=== PATIENT | female | born 1995 | race Caucasian/White ===

== ENCOUNTER 2020-09-28 06:22 | Inpatient (IN) ==
[2020-09-28] MEDS ORDERED: LR 1000 ML IV 1,000 ML IV ONE ×2 (06:35→06:42)
[2020-09-28] MEDS ORDERED: ANCEF 1 GRAM IV PREMIX* 2 G/100 ML BAG IV ONE (06:35)
[2020-09-28] MEDS ORDERED: DILAUDID INJ ONE (06:41)
[2020-09-28] MEDS ORDERED: D5 1/2 NS 1L W PITOCIN 20 UNITS/L 20 UNITS/1,000 ML BAG IV ONE (06:42)
[2020-09-28] MEDS ORDERED: XYLOCAINE 1 % (PLAIN) ONE (06:43)
[2020-09-28] MEDS ORDERED: EPHEDRINE SULFATE INJ ONE (07:26)
[2020-09-28] MEDS ORDERED: PITOCIN ONE (07:26)
[2020-09-28] MEDS ORDERED: MARCAINE SPINAL ONE (07:26)
[2020-09-28] MEDS ORDERED: REGLAN INJ 10 MG VIAL ONE (07:26)
[2020-09-28] MEDS ORDERED: ZOFRAN INJ 4 MG VIAL ONE (07:26)
[2020-09-28] MEDS ORDERED: NS 1000 ML 1,000 ML ONE (07:44)
[2020-09-28] MEDS ORDERED: ZOFRAN INJ 4 MG VIAL IVP PRN ×2 (08:37→09:53)
[2020-09-28] MEDS ORDERED: BENADRYL INJ 50 MG VIAL IVP PRN (08:37)
[2020-09-28] MEDS ORDERED: REGLAN INJ 10 MG VIAL IVP PRN (08:37)
[2020-09-28] MEDS ORDERED: BARHEMSYS INJ IVP PRN (08:37)
[2020-09-28] MEDS ORDERED: PHENERGAN INJ 25 MG IM PRN ×2 (08:37→09:57)
[2020-09-28] MEDS ORDERED: NARCAN INJ IVP PRN ×3 (08:53→09:55)
[2020-09-28] MEDS ORDERED: PERCOCET TAB 5/325 MG PO PRN (09:50)
[2020-09-28] MEDS ORDERED: MILK OF MAGNESIA PO PRN (09:50)
[2020-09-28] MEDS ORDERED: AMBIEN PO PRN (09:50)
[2020-09-28] MEDS: PRENATAL PLUS PO SCH (10:18)
[2020-09-28] MEDS: TORADOL 30 MG VIAL IM SCH ×3 (10:24→22:23)
[2020-09-28] MEDS ORDERED: COLACE CAP 100 MG PO SCH (21:00)
[2020-09-29] MEDS: TORADOL 30 MG VIAL IM SCH (03:52)
[2020-09-29 06:06] LABS: HEMATOCRIT 25.2 % (36.0-47.0)
[2020-09-29 06:10] LABS: HEMOGLOBIN 8.5 g/dL (12.0-16.0)
--- NOTE | 2020-09-29 07:06 | NOTE.PROBC ---
Progress Note OB-C/S Subjective Data Subjective: No complaints, decreased lochia. Tolerating regular diet. No N/V. Ambulating well. Michele draining well. Pain under good control with { }. Objective Data Result Diagrams: 09/29/20 05:20 Objective Data: CV= RRR no MRG Lungs=CTA Bilaterally Abd=(+) BS, soft, ND, appropriately tender near incision. Bandage removed. Incision clean/dry/intact, no erythema, no bleeding, no discharge. Dermabond/Stitches intact. Fundus firm/NT/ at { } cm below umbilicus. Ext= No edema, NT, No Cords. Graduated Compression Stockings/Sequential Compression Devices Bilaterally. Plan (1) delivery delivered: Plan: doing well requesting early d/c
[2020-09-29] MEDS ORDERED: MOTRIN TAB 800 MG PO PRN (08:00)
[2020-09-29] MEDS ORDERED: TORADOL 30 MG VIAL IM PRN (08:30)
[2020-09-29] MEDS: PRENATAL PLUS PO SCH (09:43)
--- OUTSIDE RECORDS SUMMARY | 2020-09-29 10:40 | XMS | Continuity of Care Document ---
:1995 Author Name [employer], [employer] Address Unavailable Unavailable , Care Team Providers Name Role Phone No, PCP Primary Care Provider Unavailable Jesus Marsh Sr Unavailable Avalos Unavailable Unavailable Unavailable Unavailable Problems Name Dates Details Abortions/Miscarriages Comments: 4. Status: Active Anemia in , third trimester (O99.013, 648.23) Status: Active Breech presentation, single or unspecified fetus (O32.1XX0, 652.20) Status: Active Chronic hypertension affecting (O10.919, 642.00) Status: Active Delivery Mode Comments: 1-Vaginal, 8-A-Jhdnbbde Status: Active Elevated liver enzymes (R74.8, 790.5) Co mments: plan to repeat in about1-2 months Status: Active Encounter for supervision of normal preg michela in multigravida in third trimester (Z34.83, V22.1) Comments: CHTN and will now start BPP/NST weekly at 32 weeks with a planned 37 week repeat with tubal. Tubal consents are signed. Status: Active High-risk in third trimester (O09.93, V23.9) Comments: The is no longer breech but we will still move to a repeat with tubal. Yesterday's BPP was 10/10 Status: Active Living Children (Number Of) Comments: 2. Status: Active Pregnancies () Comments: 8. Status: Active Status Comments: . Positive home test. Status: Active Comments: 1. Deliver ed stillborn at 5 months Status: Active Previous section (Z98.891, V45.89) Status: Active Term Comments: 2. Status: Active Tobacco abuse (Z72.0, 305.1) Status: Act josiah Unspecified Diagnosis Status: Active Unspecified Diagnosis Status: Active Medications Name Dates Details Iron 325 (65 Fe) MG Oral Tablet 1 (one) Tablet three times daily for 30 days Quantity: 90 {Tablet} Refills: 3 Ordered:08-Sep-2020 Start : 08-Sep-2020 Active Oral Tablet Active Azithromycin 250 MG Oral Tablet 1 (one) Tablet daily for 5 days Quantity: 7 {Tablet} Refills: 0 Ordered:16-May-2020 Юлия Lopez Start : 16-May-2020 End : 21-May-2020 Inactive No Known Historical Medications Allergies and Adverse Reactions Name Dates Details Penicillins (Allergy) Reaction: Hives, I tching Status: Active Past Medical History Name Dates Details Encounter for supervision of normal preg michela in multigravida in first trimester (Z34.81, V22.1) Status: Inactive as of Encounter for supervision of normal preg michela in multigravida in second trimester (Z34.82, V22.1) Status: Inactive as of No pertinent past medical history Status : Inactive as of 19-Aug-2020 No-show for appointment (Z53.29, V64.2) Status: Inactive as of 08-Sep-2020 Urinary tract infection affecting (O23.40, 646.60) Status: Inactive as of 08-Sep-2020 Procedures Procedure Dates Details LIGATION OR TRANSECTION OF Date: 26-Sep-2020 FALLOPIAN TUBE(S) WHEN DONE AT THE TIME OF DELIVERY OR INTRA-ABDOMINAL SURGERY (NOT A SEPARATE PROCEDURE) (LIST SEPARATELY IN ADDITION TO CODE FOR PRIMARY PROCEDURE) ([id number]) Verified Opioid Agreement Date: 23-Sep-2020 Completed Follow My Health Date: 23-Sep-2020 Completed How to Access Health Information Date: 23-Sep-2020 Complet ed 23-Sep-2020 Online using Patient Portal and 3rd [employer] Apps Section for a Breech Date: 23-Sep-2020 Baby: breech REPEAT DELIVERY WITH Date: 20-Sep-2020 CARE ([id number]) Section (Counseling and Date: 16-Sep-2020 Pre-op) Verified Opioid Agreement Date: 16-Sep-2020 Completed Follow My Health Date: 16-Sep-2020 Completed 16-Sep-2020 How to Access Health Information Date: 16-Sep-2020 Complet ed 16-Sep-2020 Online using Patient Portal and [employer] Verified Opioid Agreement Date: 08-Sep-2020 Completed Follow My Health Date: 08-Sep-2020 Completed 08-Sep-2020 How to Access Health Information Date: 08-Sep-2020 Complet ed 08-Sep-2020 Online using Patient Portal and [employer] Anemia During : anemia Date: 08-Sep-2020 US FOR BIOPHYSICAL PROFILE Date: 19-Aug-2020 WO NON-STRESS TESTING to be done weekly ([id number]) NONSTRESS TEST to be done Date: 19-Aug-2020 weekly ([id number]) Verified Opioid Agreement Date: 19-Aug-2020 Completed Follow My Health Date: 19-Aug-2020 Completed How to Access Health Information Date: 19-Aug-2020 Complet ed 19-Aug-2020 Online using Patient [employer] and [employer] Section for a Previous Date: 19-Aug-2020 Uterine Operation: c section Verified Opioid Agreement Date: 05-Aug-2020 Completed Follow My Health Date: 05-Aug-2020 Completed How to Access Health Information Date: 05-Aug-2020 Complet ed 05-Aug-2020 Online using Patient Portal and [employer] and Weight Control *: Date: 05-Aug-2020 weight control Verified Opioid Agreement Date: 08-Jul-2020 Completed Follow My Health Date: 08-Jul-2020 Completed How to Access Health Information Date: 08-Jul-2020 Complet ed 08-Jul-2020 Online using Patient Portal and [employer] Apps Verified Opioid Agreement Date: 10-Jun-2020 Completed Follow My Health Date: 10-Jun-2020 Completed 10-Jun-2020 How to Access Health Information Date: 10-Jun-2020 Complet ed 10-Jun-2020 Online using Patient Portal and 3rd [employer] Apps Follow My Health Date: 10-Jun-2020 Completed 10-Jun-2020 SMOKING CESSATION COUNSELING FOR 3 Date: 10-Jun-2020 TO 10 MINUTES ([id number]) Smoking Counseling Education Date: 10-Jun-2020 Verified Opioid Agreement Date: 13-May-2020 Completed Follow My Health Date: 13-May-2020 Completed 13-May-2020 SMOKING CESSATION COUNSELING FOR 3 Date: 13-May-2020 TO 10 MINUTES ([id number]) SMOKING CESSATION COUNSELING FOR 3 Date: 13-May-2020 TO 10 MINUTES ([id number]) Smoking Counseling Education Date: 13-May-2020 OB US >/= 14 WKS, SNGL FETUS Date: 13-May-2020 ([id number]) OB US >/= 14 WKS, SNGL FETUS Date: 18-Mar-2020 ([id number]) TRANSVAGINAL US, OBSTETRIC ([id number]) Date: 23-Feb-2020 OBSTETRICAL CARE ([id number]) Date: 23-Feb-2020 Completed COLLECTION OF CAPILLARY BLOOD: Date: 23-Feb-2020 Completed 23-Feb-2020 CAPILLARY BLOOD DRAW ([id number]) Comments: C ollection of capillary blood from index finger on right hand for HGB check by Leny Watt LPN. Patient tolerated well. COLLECTION OF VENOUS BLOOD BY Date: 23-Feb-2020 Completed 23-Feb-2020 VENIPUNCTURE: ROUTINE VENIPUNCTURE Comme nts: Venipuncture to Right AC on 02/23/2020 at 14:50 by Leny Watt LPN. Patient tolerated well. ([id number]) Section - 2 Completed Gallbladder Surgery - Laparoscopic Compl eted Tubal Ligation Completed Comments: Left. 2018 , due to Tubal Family History Name Dates Details Asthma Comments: Mother. So n. Status: Active Social History Name Dates Details Alcohol Use: Occasional alcohol use. Drinks wine. Status: Active Caffeine Use Comments: Consumes 4 servings per day of tea. Status: Active Current tobacco use: Has been smoking fo r 8 years. Smokes < 1 pack of cigarettes per day. Would like to quit. Status: Active Drug Use: Uses marijuana. Recently quit drug use. Status: Active Exercise History: Light. walking. housework. Status: Active Seat Belt Use: Always uses seat belts. S tatus: Active Tobacco/Smoke Exposure: None. Status: Ac tive Vital Signs Date Test Result Details :36 Body temperature 98.7 f Comments: Metho d: Oral Heart Rate 94 /min Comments: Pattern: R egular Respiratory rate 20 /min Comments: Pattern: U nlabored O2 SAT 99 % Comments: Room air Systolic blood pressure 131 mm[Hg] Comments: Patien t Position: Sitting; Cuff Location: Left Arm; Cuff Size: Standard Diastolic blood pressure 87 mm[Hg] Comments: Patie nt Position: Sitting; Cuff Location: Left Arm; Cuff Size: Standard Weight 187 lb Body height 60 in Body mass index (BMI) [Ratio] 36.52 kg/m2 Body surface area Derived from formula 1.81 m2 :54 Body temperature 98.1 f Comments: Metho d: Oral Heart Rate 101 /min Comments: Pattern: R egular Respiratory rate 20 /min Comments: Pattern: U nlabored O2 SAT 100 % Comments: Room air Systolic blood pressure 139 mm[Hg] Comments: Patien t Position: Sitting; Cuff Location: Left Arm; Cuff Size: Standard Diastolic blood pressure 71 mm[Hg] Comments: Patie nt Position: Sitting; Cuff Location: Left Arm; Cuff Size: Standard Weight 183.25 lb Body height 60 in Body mass index (BMI) [Ratio] 35.79 kg/m2 Body surface area Derived from formula 1.80 m2 :31 Body temperature 99.1 f Comments: Metho d: Oral Heart Rate 89 /min Comments: Pattern: R egular Respiratory rate 20 /min Comments: Pattern: U nlabored O2 SAT 98 % Comments: Room air Systolic blood pressure 140 mm[Hg] Comments: Patien t Position: Sitting; Cuff Location: Left Arm; Cuff Size: Standard Diastolic blood pressure 89 mm[Hg] Comments: Patie nt Position: Sitting; Cuff Location: Left Arm; Cuff Size: Standard Weight 181.125 lb Body height 60 in Body mass index (BMI) [Ratio] 35.37 kg/m2 Body surface area Derived from formula 1.79 m2 :51 Body temperature 97.4 f Comments: Meth od: Oral Heart Rate 98 /min Comments: Pattern: R egular Respiratory rate 20 /min Comments: Pattern: U nlabored O2 SAT 99 % Comments: Room air Systolic blood pressure 150 mm[Hg] Comments: Patien t Position: Sitting; Cuff Location: Left Arm; Cuff Size: Standard Diastolic blood pressure 68 mm[Hg] Comments: Patie nt Position: Sitting; Cuff Location: Left Arm; Cuff Size: Standard Weight 178.125 lb Body height 60 in Body mass index (BMI) [Ratio] 34.79 kg/m2 Body surface area Derived from formula 1.78 m2 :20 Body temperature 98.1 f Comments: Meth od: Oral Heart Rate 95 /min Comments: Pattern: R egular Respiratory rate 20 /min Comments: Pattern: U nlabored O2 SAT 99 % Comments: Room air Systolic blood pressure 139 mm[Hg] Comments: Patien t Position: Sitting; Cuff Location: Left Arm; Cuff Size: Standard Diastolic blood pressure 65 mm[Hg] Comments: Patie nt Position: Sitting; Cuff Location: Left Arm; Cuff Size: Standard Weight 175 lb Body height 60 in Body mass index (BMI) [Ratio] 34.18 kg/m2 Body surface area Derived from formula 1.76 m2 :40 Body temperature 97.2 f Comments: Metho d: Oral Heart Rate 94 /min Comments: Pattern: R egular Respiratory rate 18 /min Comments: Pattern: U nlabored O2 SAT 100 % Comments: Room air Systolic blood pressure 156 mm[Hg] Comments: Patien t Position: Sitting; Cuff Location: Left Arm; Cuff Size: Standard Diastolic blood pressure 73 mm[Hg] Comments: Patie nt Position: Sitting; Cuff Location: Left Arm; Cuff Size: Standard Weight 172.5 lb Body height 60 in Body mass index (BMI) [Ratio] 33.69 kg/m2 Body surface area Derived from formula 1.75 m2 :39 Body temperature 98.8 f Comments: Metho d: Oral Heart Rate 91 /min Comments: Pattern: R egular Respiratory rate 18 /min Comments: Pattern: U nlabored O2 SAT 100 % Comments: Room air Systolic blood pressure 136 mm[Hg] Comments: Patien t Position: Sitting; Cuff Location: Left Arm; Cuff Size: Standard Diastolic blood pressure 67 mm[Hg] Comments: Patie nt Position: Sitting; Cuff Location: Left Arm; Cuff Size: Standard Weight 170.5 lb Body height 60 in Body mass index (BMI) [Ratio] 33.30 kg/m2 Body surface area Derived from formula 1.74 m2 :39 Body temperature 98.7 f Comments: Metho d: Oral Heart Rate 90 /min Comments: Pattern: R egular Respiratory rate 20 /min Comments: Pattern: U nlabored O2 SAT 99 % Comments: Room air Systolic blood pressure 155 mm[Hg] Comments: Patien t Position: Sitting; Cuff Location: Left Arm; Cuff Size: Standard Diastolic blood pressure 81 mm[Hg] Comments: Patie nt Position: Sitting; Cuff Location: Left Arm; Cuff Size: Standard Weight 167 lb Body height 60 in Body mass index (BMI) [Ratio] 32.61 kg/m2 Body surface area Derived from formula 1.73 m2 :03 Body temperature 99.2 f Comments: Metho d: Oral Heart Rate 89 /min Comments: Pattern: R egular Respiratory rate 20 /min Comments: Pattern: U nlabored O2 SAT 100 % Comments: Room air Systolic blood pressure 121 mm[Hg] Comments: Patien t Position: Sitting; Cuff Location: Left Arm; Cuff Size: Standard Diastolic blood pressure 65 mm[Hg] Comments: Patie nt Position: Sitting; Cuff Location: Left Arm; Cuff Size: Standard Weight 166.125 lb Body height 60 in Body mass index (BMI) [Ratio] 32.44 kg/m2 Body surface area Derived from formula 1.73 m2 :32 Body temperature 99 f Comments: Metho d: Oral Heart Rate 98 /min Comments: Pattern: R egular Respiratory rate 18 /min Comments: Pattern: U nlabored O2 SAT 98 % Comments: Room air Systolic blood pressure 146 mm[Hg] Comments: Patien t Position: Sitting; Cuff Location: Left Arm; Cuff Size: Standard Diastolic blood pressure 69 mm[Hg] Comments: Patie nt Position: Sitting; Cuff Location: Left Arm; Cuff Size: Standard Weight 168 lb Body height 60 in Body mass index (BMI) [Ratio] 32.81 kg/m2 Body surface area Derived from formula 1.73 m2 :32 Body temperature 98.3 f Comments: Meth od: Temporal Heart Rate 84 /min Comments: Pattern: R egular Respiratory rate 20 /min Comments: Pattern: U nlabored O2 SAT 99 % Comments: Room air Systolic blood pressure 143 mm[Hg] Comments: Patien t Position: Sitting; Cuff Location: Left Arm; Cuff Size: Standard Diastolic blood pressure 84 mm[Hg] Comments: Patie nt Position: Sitting; Cuff Location: Left Arm; Cuff Size: Standard Weight 166 lb Body height 60 in Body mass index (BMI) [Ratio] 32.42 kg/m2 Body surface area Derived from formula 1.72 m2 Results Date Value Details 23-Sep-2020 OBSTETRICAL CARE ([id number]) Result: [MATERNAL / DA TA] NANCI by LMP: 09/19/2020; NANCI by physician: 10/19/2020; Movement: Present; Edema, face: 0 [MATERNAL / DATA \\ Gestational Age by Initial Exam] Weeks: 36 Weeks; Days: 2 Day s [MATERNAL / DATA \\ F undal Height] Fundal Height (Description): S>D [MATERNAL / DATA \\ Heart] Heart Rate: 150 bpm; Heart Tones: Present by doptone; Heart Tone Ben albert: RLQ [ LIE & PRES ENTATION] Presentation: Vertex [NEXT APPOINTMENT] Next Appointment: 3 weeks; Initials: ml; Comments: repeat on 16-Sep-2020 OBSTETRICAL CARE ([id number]) Result: [MATERNAL / DA TA] NANCI by LMP: 09/19/2020; NANCI by physician: 10/19/2020; Movement: Present; Edema, face: 0 [MATERNAL / DATA \\ Gestational Age by Initial Exam] Weeks: 35 Weeks; Days: 2 Day s [MATERNAL / DATA \\ F undal Height] Fundal Height: 38 cm; Fundal Height (Description): S>D [MATERNAL / DATA \\ Heart] Heart Rate: 145 bpm; Heart Tones: Present by doptone ; Heart Tone Quadrant: RLQ [ LIE & PRESENTATION] Lie: Longitudinal; Head: Not Examined; Presentation: Vertex; Descent: N/A [NEXT APPOINTMENT] Next Appointment: 1 week; Initials: ml; Comments: BPP 08-Sep-2020 OBSTETRICAL CARE ([id number]) Result: [MATERNAL / DA TA] NANCI by LMP: 09/19/2020; NANCI by physician: 10/19/2020; Movement: Present [MATERNAL / DATA \\ Gestational Age by Initial Exam] Weeks: 34 Weeks; Days: 1 Day [MATERNAL / FET AL DATA \\ Fundal Height] Fun carmine Height (Description): S>D [MATERNAL / DATA \\ Heart] Heart Rate: 145 bpm; Heart Tones: Present by doptone, Present by ultrasound [ LIE &amp ; PRESENTATION] Head: Not Examined; Presentation: Breech; Descent: N/A [NEXT APPOINTMENT] Next Appointment: 1 week; Initials: ml; Comments: is scheduled for 19-Aug-2020 OBSTETRICAL CARE ([id number]) Result: [MATERNAL / DA TA] NANCI by LMP: 09/19/2020; NANCI by physician: 10/19/2020; Edema, face: 0; Edema, legs & feet: 0 [MATERNAL / DATA \\ Gestational Age by Initial Exam] Weeks: 31 Weeks; Days: 2 D ays [MATERNAL / DATA \\ Fundal Height] Fundal Height: 35 cm [MATERNAL / DATA \\ Heart] Heart Rate: 145 bpm; Heart Tones: Present by doptone; Heart Tone Quadrant: RLQ [N EXT APPOINTMENT] Next Appoin tment: 2 weeks; Initials: ml; Comments: start weekly BPP/NST. /tubal is scheduled for 37 weeks 05-Aug-2020 OBSTETRICAL CARE ([id number]) Result: [MATERNAL / DA TA] NANCI by LMP: 09/19/2020; NANCI by physician: 10/19/2020; Edema, face: 0 [MATERNAL / DATA \\ Gestational Age by Initial Exam] Weeks: 29 Weeks; Days: 2 Days [MATERNAL / DATA \\ Fundal Height] Fundal Heig ht (Description): S=D [MATERNAL / DATA \\ Heart] Heart Rate: 145 bpm; Heart Tones: Present by doptone; Heart Tone Quadrant: RLQ [NEXT APPOINTMENT] Next Appointment: 2 weeks; Initials: ml 08-Jul-2020 OBSTETRICAL CARE ([id number]) Result: [MATERNAL / DA TA] NANCI by LMP: 09/19/2020; NANCI by physician: 10/19/2020; Movement: Present [MATERNAL / DATA \\ Gestational Age by Initial Exam] Weeks: 25 Weeks; Days: 2 Days [MATERNAL / FE MAHI DATA \\ Fundal Height] Fu ndal Height: 27 cm [MATERNAL / DATA \\ Heart] Heart Rate: 145 bpm; Heart Tones: Present by doptone; Heart Tone Quadrant: RLQ [ LIE & PRE SENTATION] Lie: Longit udinal; Head: Not Examined; Presentation: Vertex; Descent: N/A [NEXT APPOINTMENT] Next Appointment: 4 weeks; Initials: ml; Comments: 1 hour GTT/ CMP/24 hour urine 10-Jun-2020 OBSTETRICAL CARE ([id number]) Result: [MATERNAL / DA TA] NANCI by LMP: 09/19/2020; NANCI by physician: 10/19/2020; Movement: Present; Edema, face: 0; Edema, legs & feet: 0 [MATERNAL / DATA \\ Gestational Age by Initial Exam] W eeks: 21 Weeks; Days: 2 Days [MATERNAL / DATA \\ Fundal Height] Fundal Height: 23 cm [MATERNAL / DATA \\ Heart] Heart Rate: 150 bpm; Heart Tones: Present by doptone; He art Tone Quadrant: RLQ [FETA L LIE & PRESENTATION] Lie: N/A; Head: Not Examined; Presentation: N/A; Descent: N/A [NEXT APPOINTMENT] Next Appointment: 4 weeks; Initials: ml; Comments: desires tubal ligation at repeat 13-May-2020 OBSTETRICAL CARE ([id number]) Result: [MATERNAL / DA TA] NANCI by LMP: 09/19/2020; NANCI by physician: 10/19/2020; Edema, face: 0; Edema, legs & feet: 0 [MATERNAL / DATA \\ Gestational Age by Initial Exam] Weeks: 17 Weeks; Days: 2 D ays [MATERNAL / DATA \\ Fundal Height] Fundal Height (Description): S=D [MATERNAL / DATA \\ Heart] Heart Rate: 145 bpm; Heart Tone Quadrant: RLQ [NEXT APPOINTMENT] Next Appoi ntment: 4 weeks; Initials: ml; Comments: repeat liver enzyme next visit 20-Apr-2020 OBSTETRICAL CARE ([id number]) Result: [MATERNAL / DA TA] NANCI by LMP: 09/19/2020; NANCI by physician: 10/19/2020 [MATERNAL / DATA \\ Gestational Age by Initial Exam] Weeks: 14 Weeks 15-Apr-2020 OBSTETRICAL CARE ([id number]) Result: [MATERNAL / DA TA] NANCI by LMP: 09/19/2020; NANCI by physician: 10/19/2020; Movement: Present; Edema, face: 0; Edema, legs & feet: 0 [MATERNAL / DATA \\ Gestational Age by Initial Exam] W eeks: 13 Weeks; Days: 2 Days [MATERNAL / DATA \\ Fundal Height] Fundal Height (Description): S=D [MATERNAL / DATA \\ Heart] Heart Rate: 145 bpm; Heart Tone Quadrant: N/A [FET AL LIE & PRESENTATION] Head: Not Examined; Descent: N/A [NEXT APPOINTMENT] Next Appointment: 4 weeks; Initials: ml; Comments: She still has not had labs drawn-send now 25-Mar-2020 OBSTETRICAL CARE ([id number]) Result: [MATERNAL / DA TA] NANCI by LMP: 09/19/2020; NANCI by physician: 10/19/2020; Basis: ultrasound [MATERNAL / DATA \\ Gestational Age by Initial Exam] Weeks: 10 Weeks; Days: 2 Days 18-Mar-2020 OBSTETRICAL CARE ([id number]) Result: [MATERNAL / DA TA] NANCI by LMP: 09/19/2020 [MATERNAL / DATA \\ Gestational Age by Initial Exam] Weeks: 13 Weeks; Days: 4 Days Date Description Value Details :30 URINALYSIS, AUTOMATED W/O MICRO Comments : Urine collected clean catch.; Dr. Marsh notified. ([id number]) UA - COLOR yellow (Normal) UA - APPEARANCE clear (Normal) UA - GLUCOSE Negative g/dL (Normal) UA - BILIRUBIN Negative (Normal) UA - KETONES Negative mg/dL (Normal) UA - SPECIFIC GRAVITY 1.020 (Normal) UA - BLOOD Negative (Normal) UA - PH 7.0 (Normal) UA - PROTEIN Negative mg/dL (Normal) UA - UROBILINOGEN 0.2 mg/dL (Normal) UA - NITRITE Negative (Normal) UA - LEUKOCYTE ESTERASE Negative (Normal) :30 URINE PREG TEST-VIS COL ([id number]) Comments : Urine collected clean catch. Urine Test POSITIVE with control line present. Positive = Positive, Negative = Negative. LOT #[id number], EXP: 07/01/2020; Dr. Marsh notified. URINE PREG TEST-VIS COL POSITIVE (Normal) Comme nts: LOT #[id number], EXP: 1Positive = PositiveNegative = Negative :41 HGB (HEMOGLOBIN) ([id number]) Comments: Colle ction of capillary blood from index finger on right hand for HGB check by Leny Watt LPN. Patient tolerated well.; Dr. Marsh notified. HGB (HEMOGLOBIN) 10.9 g/dL (Abnormal) Range: 14 .4 - 16.6 :31 HGB (HEMOGLOBIN) ([id number]) HGB (HEMOGLOBIN) 10.1 g/dL (Abnormal) Range: 14 .4 - 16.6 :31 URINALYSIS, AUTOMATED W/O MICRO (67353) UA - COLOR yellow (Normal) UA - APPEARANCE clear (Normal) UA - GLUCOSE Negative g/dL (Normal) UA - BILIRUBIN Negative (Normal) UA - KETONES Negative mg/dL (Normal) UA - SPECIFIC GRAVITY 1.025 (Normal) UA - BLOOD Negative (Normal) UA - PH 6.5 (Normal) UA - PROTEIN Negative mg/dL (Normal) UA - UROBILINOGEN 0.2 mg/dL (Normal) UA - NITRITE Negative (Normal) UA - LEUKOCYTE ESTERASE Negative (Normal) :55 HGB (HEMOGLOBIN) ([id number]) HGB (HEMOGLOBIN) 11.4 g/dL (Abnormal) Range: 14 .4 - 16.6 :55 URINALYSIS, AUTOMATED W/O MICRO ([id number]) UA - COLOR yellow (Normal) UA - APPEARANCE clear (Normal) UA - GLUCOSE Negative g/dL (Normal) UA - BILIRUBIN Negative (Normal) UA - KETONES Negative mg/dL (Normal) UA - SPECIFIC GRAVITY 1.030 (Normal) UA - BLOOD Negative (Normal) UA - PH 6.0 (Normal) UA - PROTEIN Negative mg/dL (Normal) UA - UROBILINOGEN 0.2 mg/dL (Normal) UA - NITRITE Negative (Normal) UA - LEUKOCYTE ESTERASE Negative (Normal) :01 HGB (HEMOGLOBIN) ([id number]) HGB (HEMOGLOBIN) 11.0 g/dL (Abnormal) Range: 14 .4 - 16.6 :01 URINALYSIS, AUTOMATED W/O MICRO ([id number]) UA - COLOR pale yellow (Normal) UA - APPEARANCE clear (Normal) UA - GLUCOSE Negative g/dL (Normal) UA - BILIRUBIN Negative (Normal) UA - KETONES Negative mg/dL (Normal) UA - SPECIFIC GRAVITY 1.025 (Normal) UA - BLOOD Negative (Normal) UA - PH 7.5 (Normal) UA - PROTEIN Negative mg/dL (Normal) UA - UROBILINOGEN 1 mg/dL (Normal) UA - NITRITE Negative (Normal) UA - LEUKOCYTE ESTERASE Negative (Normal) :38 HGB (HEMOGLOBIN) ([id number]) HGB (HEMOGLOBIN) 10.3 g/dL (Abnormal) Range: 14 .4 - 16.6 :38 URINALYSIS, AUTOMATED W/O MICRO (18223) UA - COLOR yellow (Normal) UA - APPEARANCE clear (Normal) UA - GLUCOSE Negative g/dL (Normal) UA - BILIRUBIN Negative (Normal) UA - KETONES Negative mg/dL (Normal) UA - SPECIFIC GRAVITY 1.020 (Normal) UA - BLOOD Negative (Normal) UA - PH 6.0 (Normal) UA - PROTEIN Negative mg/dL (Normal) UA - UROBILINOGEN 0.2 mg/dL (Normal) UA - NITRITE Negative (Normal) UA - LEUKOCYTE ESTERASE Trace (Normal) :38 HGB (HEMOGLOBIN) ([id number]) HGB (HEMOGLOBIN) 11.0 g/dL (Abnormal) Range: 14 .4 - 16.6 :38 URINALYSIS, AUTOMATED W/O MICRO (74275) UA - COLOR yellow (Normal) UA - APPEARANCE clear (Normal) UA - GLUCOSE Negative g/dL (Normal) UA - BILIRUBIN Small(+) (Normal) UA - KETONES Negative mg/dL (Normal) UA - SPECIFIC GRAVITY 1.030 (Normal) UA - BLOOD Trace (non-hem) (Normal) UA - PH 6.5 (Normal) UA - PROTEIN 30(+) mg/dL (Normal) UA - UROBILINOGEN 0.2 mg/dL (Normal) UA - NITRITE Negative (Normal) UA - LEUKOCYTE ESTERASE Negative (Normal) :23 HGB (HEMOGLOBIN) ([id number]) HGB (HEMOGLOBIN) 10.5 g/dL (Abnormal) Range: 14 .4 - 16.6 :23 URINALYSIS, AUTOMATED W/O MICRO (18588) UA - COLOR yellow (Normal) UA - APPEARANCE clear (Normal) UA - GLUCOSE Negative g/dL (Normal) UA - BILIRUBIN Small(+) (Normal) UA - KETONES Negative mg/dL (Normal) UA - SPECIFIC GRAVITY >1.030 (Normal) UA - BLOOD Negative (Normal) UA - PH 6.5 (Normal) UA - PROTEIN 30(+) mg/dL (Normal) UA - UROBILINOGEN 0.2 mg/dL (Normal) UA - NITRITE Negative (Normal) UA - LEUKOCYTE ESTERASE Negative (Normal) :00 HGB (HEMOGLOBIN) ([id number]) HGB (HEMOGLOBIN) 9.6 g/dL (Abnormal) Range: 14. 4 - 16.6 :00 URINALYSIS, AUTOMATED W/O MICRO (88766) UA - COLOR yellow (Normal) UA - APPEARANCE clear (Normal) UA - GLUCOSE Negative g/dL (Normal) UA - BILIRUBIN Negative (Normal) UA - KETONES Negative mg/dL (Normal) UA - SPECIFIC GRAVITY 1.025 (Normal) UA - BLOOD Negative (Normal) UA - PH 7.0 (Normal) UA - PROTEIN Negative mg/dL (Normal) UA - UROBILINOGEN 0.2 mg/dL (Normal) UA - NITRITE Negative (Normal) UA - LEUKOCYTE ESTERASE Negative (Normal) :30 HGB (HEMOGLOBIN) (35394) HGB (HEMOGLOBIN) 8.0 g/dL (Abnormal) Range: 14. 4 - 16.6 :30 URINALYSIS, AUTOMATED W/O MICRO (56223) UA - COLOR yellow (Normal) UA - APPEARANCE clear (Normal) UA - GLUCOSE Negative g/dL (Normal) UA - BILIRUBIN Negative (Normal) UA - KETONES Negative mg/dL (Normal) UA - SPECIFIC GRAVITY >1.030 (Normal) UA - BLOOD Negative (Normal) UA - PH 7.0 (Normal) UA - PROTEIN Negative mg/dL (Normal) UA - UROBILINOGEN 0.2 mg/dL (Normal) UA - NITRITE Negative (Normal) UA - LEUKOCYTE ESTERASE Negative (Normal) :53 HGB (HEMOGLOBIN) (76352) HGB (HEMOGLOBIN) 9.4 g/dL (Abnormal) Range: 14. 4 - 16.6 :53 URINALYSIS, AUTOMATED W/O MICRO (02868) UA - COLOR yellow (Normal) UA - APPEARANCE clear (Normal) UA - GLUCOSE Negative g/dL (Normal) UA - BILIRUBIN Negative (Normal) UA - KETONES Negative mg/dL (Normal) UA - SPECIFIC GRAVITY >1.030 (Normal) UA - BLOOD Negative (Normal) UA - PH 7.0 (Normal) UA - PROTEIN Negative mg/dL (Normal) UA - UROBILINOGEN 0.2 mg/dL (Normal) UA - NITRITE Negative (Normal) UA - LEUKOCYTE ESTERASE Negative (Normal) :35 HGB (HEMOGLOBIN) (69134) HGB (HEMOGLOBIN) 10.3 g/dL (Abnormal) Range: 14 .4 - 16.6 :35 URINALYSIS, AUTOMATED W/O MICRO (30816) UA - COLOR yellow (Normal) UA - APPEARANCE clear (Normal) UA - GLUCOSE Negative g/dL (Normal) UA - BILIRUBIN Small(+) (Normal) UA - KETONES Negative mg/dL (Normal) UA - SPECIFIC GRAVITY >1.030 (Normal) UA - BLOOD Trace (non-hem) (Normal) UA - PH 6.5 (Normal) UA - PROTEIN 30(+) mg/dL (Normal) UA - UROBILINOGEN 0.2 mg/dL (Normal) UA - NITRITE Negative (Normal) UA - LEUKOCYTE ESTERASE Negative (Normal) Treatment Plan [place] Virus/Covid-19 (U0001); Ordered: 09/20/2020BO Blood Typing; Ordered: 09/20/2020BC, PLATELETS & AUT DIFF; Ordered: 09/20/2020RUG TEST PRSMV CHEM ANLYZR; Ordered: 09/20/2020METABOLIC PANEL, COMPREHENSIVE; Ordered: 09/20/2020PR (RAPID PLASMA REAGIN); Ordered: 09/20/2020URINALYSIS; Ordered: 09/20/2020URINE MARISA CULTURE-SANTA COL COUNT; Ordered: Hour Urine Creatinine (85856); Ordered: HOUR PROTEIN, URINE, TOTAL (57583); Ordered: 07/08/2020MP (34817); Ordered: Hour Glucose Tolerance Test-50gram load (21970); Ordered: 07/08/2020BO Blood Typing; Ordered: 04/15/2020ntibody Screen; Ordered: 04/15/2020BC, PLATELETS & AUT DIFF; Ordered: 04/15/2020hlamydia; Ordered: 04/15/2020GC; Ordered: 04/15/2020HEMOGLOB ELECTROPHORESIS; Ordered: 04/15/2020 HEPATITIS B SURFACE ANTIGEN; Ordered: 04/15/2020Herpes Simplex (HSV) II Ab; Ordered: 04/15/2020HIV ANTIGEN; Ordered: 04/15/2020METABOLIC PANEL, COMPREHENSIVE; Ordered: 04/15/2020PR (RAPID PLASMA REAGIN); Ordered: 04/15/2020UBELLA ANTIBODY; Ordered: 04/15/2020TSH (THYROID STIMULATING HORMONE); Ordered: 04/15/2020TYPE I HERP SMPLX ANTBDY; Ordered: 04/15/2020HCG (HUMAN CHORIONIC GONADOTROPIN - BETA) (15816); Ordered: 02/23/2020; Note: Venipuncture to RightAC on 02/23/2020 at 14:50 by Leny Watt LPN. Patient tolerated well.ABO Blood Typing; Ordered: 02/23/2020Antibody Screen; Ordered: 02/23/2020CBC, PLATELETS & AUT DIFF; Ordered: 02/23/2020Chlamydia; Ordered: 02/23/2020GC; Ordered: 02/23/2020HEMOGLOB ELECTROPHORESIS; Ordered: 02/23/2020HEPATITIS B SURFACE ANTIGEN; Ordered: 02/23/2020Herpes Simplex (HSV) II Ab; Ordered: 02/23/2020HIV ANTIGEN; Ordered: 02/23/2020METABOLIC PANEL, COMPREHENSIVE; Ordered: 02/23/2020RPR (RAPID PLASMA REAGIN); Ordered: 02/23/2020RUBELLA ANTIBODY; Ordered: 02/23/2020TSH (THYROID STIMULATING HORMONE); Ordered: 02/23/2020TYPE I HERP SMPLX ANTBDY; Ordered: 02/23/2020 Advance Directives No Advance Directive Information Available Encounters Review On: 29-Sep-2020 10:30 [facility] Nurse Ordered Procedures/Labs - Encounte r for supervision of normal in multigravida in third trimester (V22.1 | Z34.83) On: 26-Sep-2020 15:32 [facility] End: 27-Sep-2020 14 :45 Office Visit - Chronic hypertension affe cting (642.00 | O10.919), Anemia in , third trimester (648.23 | O99.013), Previous section (V45.89 | Z98.891), High-risk in third trimester (V23.9 | O09.93) On: 23-Sep-2020 7:34 [facility] End: 23-Sep-2020 10:18 Nurse Ordered Procedures/Labs - Breech p resentation, single or unspecified fetus (652.20 | O32.1XX0) On: 20-Sep-2020 15:04 [facility] End: 20-Sep-2020 16 :59 Office Visit - Breech presentation, sing le or unspecified fetus (652.20 | O32.1XX0), Anemia in , third trimester (648.23 | O99.013), Chronic hypertension affecting (642.00 | O10.919), On: 16-Sep-2020 8:52 High-risk in third trimester (V23.9 | O09.93), Previous section (V45.89 | Z98.891) End: 16-Sep-2020 10:58 [facility] Office Visit - Chronic hypertension affe cting (642.00 | O10.919), Previous section (V45.89 | Z98.891), High-risk in third trimester (V23.9 | O09.93), Anemia in , th On: 08-Sep-2020 7:29 ird trimester (648.23 | O99.013), Breech presentation, single or unspecified fetus (652.20 | O32.1XX0) End: 08-Sep-2020 9:37 [facility] Office Visit - No-show for appointment (V64.2 | Z53.29 ) On: 01-Sep-2020 7:44 [facility] End: 01-Sep-2020 10:49 Office Visit - Previous section (V45.89 | Z98.891), Encounter for supervision of normal in multigravida in third trimester (V22.1 | Z34.83), Chronic hypertension affecting (642.00 | O10.919) On: 19-Aug-2020 7:56 [facility] End: 19-Aug-2020 11:19 Office Visit - Encounter for supervision of normal in multigravida in third trimester (V22.1 | Z34.83), Previous section (V45.89 | Z98.891) On: 05-Aug-2020 10:20 [facility] End: 05-Aug-2020 10:39 Office Visit - Encounter for supervision of normal in multigravida in third trimester (V22.1 | Z34.83), Previous section (V45.89 | Z98.891), Tobacco abuse (305.1 | Z72.0), Chronic hypertension affecting (642.00 | O10.919) On: 08-Jul-2020 7:37 [facility] End: 08-Jul-2020 10:30 Office Visit - Encounter for supervision of normal in multigravida in second trimester (V22.1 | Z34.82), Previous section (V45.89 | Z98.891), Tobacco abuse (305.1 | Z72.0) On: 10-Jun-2020 7:38 [facility] End: 10-Jun-2020 11:10 [employer] Medication Prescribed - Urinary tr act infection affecting (646.60 | O23.40) On: 16-May-2020 14:13 [facility] End: 16-May-2020 15:07 Office Visit - Previous section (V45.89 | Z98.891), Encounter for supervision of normal in multigravida in second trimester (V22.1 | Z34.82), Elevated liver enzymes (790.5 | R74.8) On: 13-May-2020 7:59 [facility] End: 13-May-2020 10:50 Nurse Ordered Procedures/Labs - Unspecified Diagnosis On: 20-Apr-2020 13:43 [facility]/ 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 End: 20-Apr-2020 13:44 Office Visit - Encounter for supervision of normal in multigravida in first trimester (V22.1 | Z34.81), Previous section (V45.89 | Z98.891) On: 15-Apr-2020 7:53 [facility] End: 15-Apr-2020 10:12 Nurse Ordered Procedures/Labs - Unspecified Diagnosis On: 25-Mar-2020 8:48 [facility]/ 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 End: 25-Mar-2020 8:50 Nurse Ordered Procedures/Labs - Encounte r for supervision of normal in multigravida in first trimester (V22.1 | Z34.81) On: 18-Mar-2020 12:09 [facility] End: 18-Mar-2020 12:20 Office Visit - Encounter for supervision of normal in multigravida in first trimester (V22.1 | Z34.81) On: 18-Mar-2020 7:55 [facility] End: 18-Mar-2020 12:00 Office Visit - Encounter for supervision of normal in multigravida in first trimester (V22.1 | Z34.81), Previous section (V45.89 | Z98.891), Tobacco abuse (305.1 | Z72.0) On: 23-Feb-2020 13:50 [facility] End: 23-Feb-2020 15:06 Insurance Claudia Locke; pe[employer]"
--- OUTSIDE RECORDS SUMMARY | 2020-09-29 10:40 | XMS | Continuity of Care Document ---
:1995 Author Name [employer], System Address Unavailable Unavailable , Care Team [...] 642.00) Status: Active Delivery Mode Comments: 1-Vaginal, 3-Y-Cdmxlcea Status: Active Elevated liver enzymes (R74.8, 790.5) [...] IN ADDITION TO CODE FOR PRIMARY PROCEDURE) (49797) Verified Opioid Agreement Date: 23-Sep-2020 Completed Follow My Health Date: 23-Sep-2020 Completed How to Access Health Information Date: 23-Sep-2020 Complet ed 23-Sep-2020 Online using Patient Portal and 3rd Green Party Apps Section for a Breech Date: 23-Sep-2020 Baby: breech REPEAT DELIVERY WITH Date: 20-Sep-2020 CARE (78041) Section (Counseling and Date: 16-Sep-2020 Pre-op) Verified Opioid Agreement Date: 16-Sep-2020 Completed Follow My Health Date: 16-Sep-2020 Completed 16-Sep-2020 How to Access Health Information Date: 16-Sep-2020 Complet ed 16-Sep-2020 Online using Patient Portal and [employer] Apps Verified Opioid Agreement Date: 08-Sep-2020 Completed Follow My Health Date: 08-Sep-2020 Completed 08-Sep-2020 How to Access Health Information Date: 08-Sep-2020 Complet ed 08-Sep-2020 Online using Patient Portal and [employer] Apps Anemia During : anemia Date: 08-Sep-2020 US FOR BIOPHYSICAL PROFILE Date: 19-Aug-2020 WO NON-STRESS TESTING to be done weekly (66879) NONSTRESS TEST to be done Date: 19-Aug-2020 weekly (67869) Verified Opioid Agreement Date: 19-Aug-2020 Completed Follow My Health Date: 19-Aug-2020 Completed How to Access Health Information Date: 19-Aug-2020 Complet ed 19-Aug-2020 Online using Patient [employer] and [employer] Apps Section for a Previous Date: 19-Aug-2020 Uterine Operation: c section Verified Opioid Agreement Date: 05-Aug-2020 Completed Follow My Health Date: 05-Aug-2020 Completed How to Access Health Information Date: 05-Aug-2020 Complet ed 05-Aug-2020 Online using Patient Portal and [employer] Apps and Weight Control *: Date: 05-Aug-2020 weight control Verified Opioid Agreement Date: 08-Jul-2020 Completed Follow My Health Date: 08-Jul-2020 Completed How to Access Health Information Date: 08-Jul-2020 Complet ed 08-Jul-2020 Online using Patient Portal and [employer] Green [employer] Apps Verified Opioid Agreement Date: 10-Jun-2020 Completed Follow My Health Date: 10-Jun-2020 Completed 10-Jun-2020 How to Access Health Information Date: 10-Jun-2020 Complet ed 10-Jun-2020 Online using Patient Portal and 3rd [employer] Party Apps Follow My Health Date: 10-Jun-2020 Completed 10-Jun-2020 SMOKING CESSATION COUNSELING FOR 3 Date: 10-Jun-2020 TO 10 MINUTES (55722) Smoking Counseling Education Date: 10-Jun-2020 Verified Opioid Agreement Date: 13-May-2020 Completed Follow My Health Date: 13-May-2020 Completed 13-May-2020 SMOKING CESSATION COUNSELING FOR 3 Date: 13-May-2020 TO 10 MINUTES (87237) SMOKING CESSATION COUNSELING FOR 3 Date: 13-May-2020 TO 10 MINUTES (00299) Smoking Counseling Education Date: 13-May-2020 OB US >/= 14 WKS, SNGL FETUS Date: 13-May-2020 (95782) OB US >/= 14 WKS, SNGL FETUS Date: 18-Mar-2020 (36129) TRANSVAGINAL US, OBSTETRIC (30436) Date: 23-Feb-2020 OBSTETRICAL CARE (51373) Date: 23-Feb-2020 Completed COLLECTION OF CAPILLARY BLOOD: Date: 23-Feb-2020 Completed 23-Feb-2020 CAPILLARY BLOOD DRAW (95518) Comments: C ollection of capillary blood from index finger on right hand for HGB check by Leny Watt LPN. Patient tolerated well. COLLECTION OF VENOUS BLOOD BY Date: 23-Feb-2020 Completed 23-Feb-2020 VENIPUNCTURE: ROUTINE VENIPUNCTURE Comme nts: Venipuncture to Right AC on 02/23/2020 at 14:50 by Leny Watt LPN. Patient tolerated well. (86595) Section - 2 Completed Gallbladder Surgery - [...] Results Date Value Details 23-Sep-2020 OBSTETRICAL CARE (23282) Result: [MATERNAL / DA TA] NANCI by [...] ml; Comments: repeat on 16-Sep-2020 OBSTETRICAL CARE (85707) Result: [MATERNAL / DA TA] NANCI by [...] Initials: ml; Comments: BPP 08-Sep-2020 OBSTETRICAL CARE (23695) Result: [MATERNAL / DA TA] NANCI by [...] Comments: is scheduled for 19-Aug-2020 OBSTETRICAL CARE (00862) Result: [MATERNAL / DA TA] NANCI by [...] scheduled for 37 weeks 05-Aug-2020 OBSTETRICAL CARE (62949) Result: [MATERNAL / DA TA] NANCI by [...] 2 weeks; Initials: ml 08-Jul-2020 OBSTETRICAL CARE (20979) Result: [MATERNAL / DA TA] NANCI by [...] GTT/ CMP/24 hour urine 10-Jun-2020 OBSTETRICAL CARE (94561) Result: [MATERNAL / DA TA] NANCI by [...] tubal ligation at repeat 13-May-2020 OBSTETRICAL CARE (59572) Result: [MATERNAL / DA TA] NANCI by [...] liver enzyme next visit 20-Apr-2020 OBSTETRICAL CARE (87593) Result: [MATERNAL / DA TA] NANCI by LMP: 09/19/2020; NANCI by physician: 10/19/2020 [MATERNAL / DATA \\ Gestational Age by Initial Exam] Weeks: 14 Weeks 15-Apr-2020 OBSTETRICAL CARE (71472) Result: [MATERNAL / DA TA] NANCI by [...] had labs drawn-send now 25-Mar-2020 OBSTETRICAL CARE (39682) Result: [MATERNAL / DA TA] NANCI by LMP: 09/19/2020; NANCI by physician: 10/19/2020; Basis: ultrasound [MATERNAL / DATA \\ Gestational Age by Initial Exam] Weeks: 10 Weeks; Days: 2 Days 18-Mar-2020 OBSTETRICAL CARE (20969) Result: [MATERNAL / DA TA] NANCI by LMP: 09/19/2020 [MATERNAL / DATA \\ Gestational Age by Initial Exam] Weeks: 13 Weeks; Days: 4 Days Date Description Value Details :30 URINALYSIS, AUTOMATED W/O MICRO Comments : Urine collected clean catch.; Dr. Marsh notified. (08059) UA - COLOR yellow (Normal) UA - [...] Negative (Normal) :30 URINE PREG TEST-VIS COL (59983) Comments : Urine collected clean catch. Urine Test POSITIVE with control line present. Positive = Positive, Negative = Negative. LOT #[id number], EXP: 07/01/2020; Dr. Marsh notified. URINE PREG TEST-VIS COL POSITIVE (Normal) Comme nts: LOT #[id number], EXP: 1Positive = PositiveNegative = Negative :41 HGB (HEMOGLOBIN) (19984) Comments: Colle ction of capillary blood from index finger on right hand for HGB check by Leny Watt LPN. Patient tolerated well.; Dr. Marsh notified. HGB (HEMOGLOBIN) 10.9 g/dL (Abnormal) Range: 14 .4 - 16.6 :31 HGB (HEMOGLOBIN) (76029) HGB (HEMOGLOBIN) 10.1 g/dL (Abnormal) Range: 14 .4 - 16.6 :31 URINALYSIS, AUTOMATED W/O MICRO (19615) UA - COLOR yellow (Normal) UA - [...] LEUKOCYTE ESTERASE Negative (Normal) :55 HGB (HEMOGLOBIN) (51190) HGB (HEMOGLOBIN) 11.4 g/dL (Abnormal) Range: 14 .4 - 16.6 :55 URINALYSIS, AUTOMATED W/O MICRO (21477) UA - COLOR yellow (Normal) UA - [...] LEUKOCYTE ESTERASE Negative (Normal) :01 HGB (HEMOGLOBIN) (56371) HGB (HEMOGLOBIN) 11.0 g/dL (Abnormal) Range: 14 .4 - 16.6 :01 URINALYSIS, AUTOMATED W/O MICRO (51087) UA - COLOR pale yellow (Normal) UA [...] LEUKOCYTE ESTERASE Negative (Normal) :38 HGB (HEMOGLOBIN) (51761) HGB (HEMOGLOBIN) 10.3 g/dL (Abnormal) Range: 14 .4 - 16.6 :38 URINALYSIS, AUTOMATED W/O MICRO (03203) UA - COLOR yellow (Normal) UA - [...] LEUKOCYTE ESTERASE Trace (Normal) :38 HGB (HEMOGLOBIN) (12154) HGB (HEMOGLOBIN) 11.0 g/dL (Abnormal) Range: 14 .4 - 16.6 :38 URINALYSIS, AUTOMATED W/O MICRO (95944) UA - COLOR yellow (Normal) UA - [...] LEUKOCYTE ESTERASE Negative (Normal) :23 HGB (HEMOGLOBIN) (82410) HGB (HEMOGLOBIN) 10.5 g/dL (Abnormal) Range: 14 .4 - 16.6 :23 URINALYSIS, AUTOMATED W/O MICRO (51620) UA - COLOR yellow (Normal) UA - [...] LEUKOCYTE ESTERASE Negative (Normal) :00 HGB (HEMOGLOBIN) (36224) HGB (HEMOGLOBIN) 9.6 g/dL (Abnormal) Range: 14. 4 - 16.6 :00 URINALYSIS, AUTOMATED W/O MICRO (01452) UA - COLOR yellow (Normal) UA - [...] LEUKOCYTE ESTERASE Negative (Normal) :30 HGB (HEMOGLOBIN) (86461) HGB (HEMOGLOBIN) 8.0 g/dL (Abnormal) Range: 14. 4 - 16.6 :30 URINALYSIS, AUTOMATED W/O MICRO (38946) UA - COLOR yellow (Normal) UA - [...] LEUKOCYTE ESTERASE Negative (Normal) :53 HGB (HEMOGLOBIN) (06209) HGB (HEMOGLOBIN) 9.4 g/dL (Abnormal) Range: 14. 4 - 16.6 :53 URINALYSIS, AUTOMATED W/O MICRO (06131) UA - COLOR yellow (Normal) UA - [...] LEUKOCYTE ESTERASE Negative (Normal) :35 HGB (HEMOGLOBIN) (40892) HGB (HEMOGLOBIN) 10.3 g/dL (Abnormal) Range: 14 .4 - 16.6 :35 URINALYSIS, AUTOMATED W/O MICRO (06806) UA - COLOR yellow (Normal) UA - [...] CULTURE-SANTA COL COUNT; Ordered: Hour Urine Creatinine (09031); Ordered: HOUR PROTEIN, URINE, TOTAL (85188); Ordered: 07/08/2020MP (71730); Ordered: Hour Glucose Tolerance Test-50gram load (26071); Ordered: 07/08/2020BO Blood Typing; Ordered: 04/15/2020ntibody Screen; [...] Ordered: 04/15/2020HCG (HUMAN CHORIONIC GONADOTROPIN - BETA) (37419); Ordered: 02/23/2020; Note: Venipuncture to RightAC on [...] Information Available Encounters Review On: 29-Sep-2020 10:30 [facility] Nurse Ordered Procedures/Labs - Encounte r for supervision of normal in multigravida in third trimester (V22.1 | Z34.83) On: 26-Sep-2020 15:32 [facility] End: 27-Sep-2020 14 :45 Office Visit - Chronic hypertension affe cting (642.00 | O10.919), Anemia in , third trimester (648.23 | O99.013), Previous section (V45.89 | Z98.891), High-risk in third trimester (V23.9 | O09.93) On: 23-Sep-2020 7:34 [facility] End: 23-Sep-2020 10:18 Nurse Ordered Procedures/Labs - Breech p resentation, single or unspecified fetus (652.20 | O32.1XX0) On: 20-Sep-2020 15:04 [facility] End: 20-Sep-2020 16 :59 Office Visit [...] Unspecified Diagnosis On: 20-Apr-2020 13:43 [facility]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
--- OUTSIDE RECORDS SUMMARY | 2020-09-29 10:45 | XMS | Continuity of Care Document ---
:1995 Author Name Change Coordinator, System Address Unavailable Unavailable , Care Team [...] 642.00) Status: Active Delivery Mode Comments: 1-Vaginal, 5-M-Rlvdefhg Status: Active Elevated liver enzymes (R74.8, 790.5) [...] IN ADDITION TO CODE FOR PRIMARY PROCEDURE) (90801) Verified Opioid Agreement Date: 23-Sep-2020 Completed Follow My Health Date: 23-Sep-2020 Completed How to Access Health Information Date: 23-Sep-2020 Complet ed 23-Sep-2020 Online using Patient Portal and [employer] Apps Section for a Breech Date: 23-Sep-2020 Baby: breech REPEAT DELIVERY WITH Date: 20-Sep-2020 CARE (57446) Section (Counseling and Date: 16-Sep-2020 Pre-op) Verified Opioid Agreement Date: 16-Sep-2020 Completed Follow My Health Date: 16-Sep-2020 Completed 16-Sep-2020 How to Access Health Information Date: 16-Sep-2020 Complet ed 16-Sep-2020 Online using Patient Portal and [employer] Apps Verified Opioid Agreement Date: 08-Sep-2020 Completed Follow My Health Date: 08-Sep-2020 Completed 08-Sep-2020 How to Access Health Information Date: 08-Sep-2020 Complet ed 08-Sep-2020 Online using Patient Portal and [employer] Apps Anemia During : anemia Date: 08-Sep-2020 US FOR BIOPHYSICAL PROFILE Date: 19-Aug-2020 WO NON-STRESS TESTING to be done weekly (52332) NONSTRESS TEST to be done Date: 19-Aug-2020 weekly (29797) Verified Opioid Agreement Date: 19-Aug-2020 Completed Follow My Health Date: 19-Aug-2020 Completed How to Access Health Information Date: 19-Aug-2020 Complet ed 19-Aug-2020 Online using Patient [employer] and [employer] Apps Section for a Previous Date: 19-Aug-2020 Uterine Operation: c section Verified Opioid Agreement Date: 05-Aug-2020 Completed Follow My Health Date: 05-Aug-2020 Completed How to Access Health Information Date: 05-Aug-2020 Complet ed 05-Aug-2020 Online using Patient Portal and [employer] Apps and Weight Control *: Date: 05-Aug-2020 weight control Verified Opioid Agreement Date: 08-Jul-2020 Completed Follow My Health Date: 08-Jul-2020 Completed How to Access Health Information Date: 08-Jul-2020 Complet ed 08-Jul-2020 Online using Patient Portal and [employer] Apps Verified Opioid Agreement Date: 10-Jun-2020 Completed Follow My Health Date: 10-Jun-2020 Completed 10-Jun-2020 How to Access Health Information Date: 10-Jun-2020 Complet ed 10-Jun-2020 Online using Patient Portal and [employer]rd [employer] Apps Follow My Health Date: 10-Jun-2020 Completed 10-Jun-2020 SMOKING CESSATION COUNSELING FOR 3 Date: 10-Jun-2020 TO 10 MINUTES (67096) Smoking Counseling Education Date: 10-Jun-2020 Verified Opioid Agreement Date: 13-May-2020 Completed Follow My Health Date: 13-May-2020 Completed 13-May-2020 SMOKING CESSATION COUNSELING FOR 3 Date: 13-May-2020 TO 10 MINUTES (19669) SMOKING CESSATION COUNSELING FOR 3 Date: 13-May-2020 TO 10 MINUTES (54779) Smoking Counseling Education Date: 13-May-2020 OB US >/= 14 WKS, SNGL FETUS Date: 13-May-2020 (20034) OB US >/= 14 WKS, SNGL FETUS Date: 18-Mar-2020 (51929) TRANSVAGINAL US, OBSTETRIC (69854) Date: 23-Feb-2020 OBSTETRICAL CARE (26868) Date: 23-Feb-2020 Completed COLLECTION OF CAPILLARY BLOOD: Date: 23-Feb-2020 Completed 23-Feb-2020 CAPILLARY BLOOD DRAW (55744) Comments: C ollection of capillary blood from index finger on right hand for HGB check by Leny Watt LPN. Patient tolerated well. COLLECTION OF VENOUS BLOOD BY Date: 23-Feb-2020 Completed 23-Feb-2020 VENIPUNCTURE: ROUTINE VENIPUNCTURE Comme nts: Venipuncture to Right AC on 02/23/2020 at 14:50 by Leny Watt LPN. Patient tolerated well. (43043) Section - 2 Completed Gallbladder Surgery - [...] Results Date Value Details 23-Sep-2020 OBSTETRICAL CARE (03826) Result: [MATERNAL / DA TA] NANCI by [...] ml; Comments: repeat on 16-Sep-2020 OBSTETRICAL CARE (32214) Result: [MATERNAL / DA TA] NANCI by [...] Initials: ml; Comments: BPP 08-Sep-2020 OBSTETRICAL CARE (57151) Result: [MATERNAL / DA TA] NANCI by [...] Comments: is scheduled for 19-Aug-2020 OBSTETRICAL CARE (34487) Result: [MATERNAL / DA TA] NANCI by [...] scheduled for 37 weeks 05-Aug-2020 OBSTETRICAL CARE (65191) Result: [MATERNAL / DA TA] NANCI by [...] 2 weeks; Initials: ml 08-Jul-2020 OBSTETRICAL CARE (76486) Result: [MATERNAL / DA TA] NANCI by [...] GTT/ CMP/24 hour urine 10-Jun-2020 OBSTETRICAL CARE (61971) Result: [MATERNAL / DA TA] NANCI by [...] tubal ligation at repeat 13-May-2020 OBSTETRICAL CARE (76601) Result: [MATERNAL / DA TA] NANCI by [...] liver enzyme next visit 20-Apr-2020 OBSTETRICAL CARE (58171) Result: [MATERNAL / DA TA] NACNI by LMP: 09/19/2020; NANCI by physician: 10/19/2020 [MATERNAL / DATA \\ Gestational Age by Initial Exam] Weeks: 14 Weeks 15-Apr-2020 OBSTETRICAL CARE (94948) Result: [MATERNAL / DA TA] NANCI by [...] had labs drawn-send now 25-Mar-2020 OBSTETRICAL CARE (77651) Result: [MATERNAL / DA TA] NANCI by LMP: 09/19/2020; NANCI by physician: 10/19/2020; Basis: ultrasound [MATERNAL / DATA \\ Gestational Age by Initial Exam] Weeks: 10 Weeks; Days: 2 Days 18-Mar-2020 OBSTETRICAL CARE (65187) Result: [MATERNAL / DA TA] NANCI by LMP: 09/19/2020 [MATERNAL / DATA \\ Gestational Age by Initial Exam] Weeks: 13 Weeks; Days: 4 Days Date Description Value Details :30 URINALYSIS, AUTOMATED W/O MICRO Comments : Urine collected clean catch.; Dr. Marsh notified. (86679) UA - COLOR yellow (Normal) UA - [...] Negative (Normal) :30 URINE PREG TEST-VIS COL (20624) Comments : Urine collected clean catch. Urine Test POSITIVE with control line present. Positive = Positive, Negative = Negative. LOT #[id number], EXP: 07/01/2020; Dr. Marsh notified. URINE PREG TEST-VIS COL POSITIVE (Normal) Comme nts: LOT #[id number], EXP: 1Positive = PositiveNegative = Negative :41 HGB (HEMOGLOBIN) (79634) Comments: Colle ction of capillary blood from index finger on right hand for HGB check by Leny Watt LPN. Patient tolerated well.; Dr. Marsh notified. HGB (HEMOGLOBIN) 10.9 g/dL (Abnormal) Range: 14 .4 - 16.6 :31 HGB (HEMOGLOBIN) (02321) HGB (HEMOGLOBIN) 10.1 g/dL (Abnormal) Range: 14 .4 - 16.6 :31 URINALYSIS, AUTOMATED W/O MICRO (36174) UA - COLOR yellow (Normal) UA - [...] LEUKOCYTE ESTERASE Negative (Normal) :55 HGB (HEMOGLOBIN) (61511) HGB (HEMOGLOBIN) 11.4 g/dL (Abnormal) Range: 14 .4 - 16.6 :55 URINALYSIS, AUTOMATED W/O MICRO (67738) UA - COLOR yellow (Normal) UA - [...] LEUKOCYTE ESTERASE Negative (Normal) :01 HGB (HEMOGLOBIN) (91541) HGB (HEMOGLOBIN) 11.0 g/dL (Abnormal) Range: 14 .4 - 16.6 :01 URINALYSIS, AUTOMATED W/O MICRO (73810) UA - COLOR pale yellow (Normal) UA [...] LEUKOCYTE ESTERASE Negative (Normal) :38 HGB (HEMOGLOBIN) (12037) HGB (HEMOGLOBIN) 10.3 g/dL (Abnormal) Range: 14 .4 - 16.6 :38 URINALYSIS, AUTOMATED W/O MICRO (83332) UA - COLOR yellow (Normal) UA - [...] LEUKOCYTE ESTERASE Trace (Normal) :38 HGB (HEMOGLOBIN) (18394) HGB (HEMOGLOBIN) 11.0 g/dL (Abnormal) Range: 14 .4 - 16.6 :38 URINALYSIS, AUTOMATED W/O MICRO (38537) UA - COLOR yellow (Normal) UA - [...] LEUKOCYTE ESTERASE Negative (Normal) :23 HGB (HEMOGLOBIN) (05585) HGB (HEMOGLOBIN) 10.5 g/dL (Abnormal) Range: 14 .4 - 16.6 :23 URINALYSIS, AUTOMATED W/O MICRO (21248) UA - COLOR yellow (Normal) UA - [...] LEUKOCYTE ESTERASE Negative (Normal) :00 HGB (HEMOGLOBIN) (20233) HGB (HEMOGLOBIN) 9.6 g/dL (Abnormal) Range: 14. 4 - 16.6 :00 URINALYSIS, AUTOMATED W/O MICRO (15428) UA - COLOR yellow (Normal) UA - [...] LEUKOCYTE ESTERASE Negative (Normal) :30 HGB (HEMOGLOBIN) (45998) HGB (HEMOGLOBIN) 8.0 g/dL (Abnormal) Range: 14. 4 - 16.6 :30 URINALYSIS, AUTOMATED W/O MICRO (62984) UA - COLOR yellow (Normal) UA - [...] LEUKOCYTE ESTERASE Negative (Normal) :53 HGB (HEMOGLOBIN) (03760) HGB (HEMOGLOBIN) 9.4 g/dL (Abnormal) Range: 14. 4 - 16.6 :53 URINALYSIS, AUTOMATED W/O MICRO (87033) UA - COLOR yellow (Normal) UA - [...] LEUKOCYTE ESTERASE Negative (Normal) :35 HGB (HEMOGLOBIN) (67137) HGB (HEMOGLOBIN) 10.3 g/dL (Abnormal) Range: 14 .4 - 16.6 :35 URINALYSIS, AUTOMATED W/O MICRO (03249) UA - COLOR yellow (Normal) UA - [...] CULTURE-SANTA COL COUNT; Ordered: Hour Urine Creatinine (13764); Ordered: HOUR PROTEIN, URINE, TOTAL (33111); Ordered: 07/08/2020MP (00504); Ordered: Hour Glucose Tolerance Test-50gram load (93217); Ordered: 07/08/2020BO Blood Typing; Ordered: 04/15/2020ntibody Screen; [...] Ordered: 04/15/2020HCG (HUMAN CHORIONIC GONADOTROPIN - BETA) (67521); Ordered: 02/23/2020; Note: Venipuncture to RightAC on [...] Information Available Encounters Review On: 29-Sep-2020 10:30 [facility] Nurse Ordered Procedures/Labs - Encounte r for supervision of normal in multigravida in third trimester (V22.1 | Z34.83) On: 26-Sep-2020 15:32 [facility] End: 27-Sep-2020 14 :45 Office Visit - Chronic hypertension affe cting (642.00 | O10.919), Anemia in , third trimester (648.23 | O99.013), Previous section (V45.89 | Z98.891), High-risk in third trimester (V23.9 | O09.93) On: 23-Sep-2020 7:34 [facility] End: 23-Sep-2020 10:18 Nurse Ordered Procedures/Labs - Breech p resentation, single or unspecified fetus (652.20 | O32.1XX0) On: 20-Sep-2020 15:04 [facility] End: 20-Sep-2020 16 :59 Office Visit - [...] Unspecified Diagnosis On: 20-Apr-2020 13:43 [facility]/ [employer]GRAM[employer] End: 20-Apr-2020 13:44 Office Visit - Encounter for supervision of normal in multigravida in first trimester (V22.1 | Z34.81), Previous section (V45.89 | Z98.891) On: 15-Apr-2020 7:53 [facility] End: 15-Apr-2020 10:12 Nurse Ordered Procedures/Labs - Unspecified Diagnosis On: 25-Mar-2020 8:48 [facility]/ [employer] PROGRAM[employer] End: 25-Mar-2020 8:50 Nurse Ordered Procedures/Labs - [...]
[2020-09-29 12:19] VITALS: BP 121/69
== END 2020-09-29 13:52 | disposition home or self-care (01) | DRG 785 ==
LOC: LD 06:22 → MED/SURG 09:50
PROVIDERS: ADMIT Obstetrics & Gynecology; ATTEND Obstetrics & Gynecology
DX: O34.211 Maternal care for low transverse scar from previous cesarean delivery; O32.1XX0 Maternal care for breech presentation, not applicable or unspecified; Z01.812 Encounter for preprocedural laboratory examination; Z37.0 Single live birth; Z30.2 Encounter for sterilization; Z3A.37 37 weeks gestation of pregnancy; N85.8 Other specified noninflammatory disorders of uterus